=== PATIENT | male | born 1960 | race Caucasian/White ===

== ENCOUNTER 2018-06-23 14:39 | Emergency (ER) | payer OTHER ==
[~2018-06-23] VITALS: Ht 180.3 cm; Wt 126.0 kg
[2018-06-23 14:43] VITALS: BP 175/93
[2018-06-23] MEDS ORDERED: CYCL-1 PO (15:39)
[2018-06-23] MEDS ORDERED: ketorolac trometh inj. 60 MG/2 ML VIAL IM ONE (15:40)
== END 2018-06-23 16:08 | disposition home or self-care (01) ==
LOC: ER 14:39
DX: G89.29 Other chronic pain (principal); M54.2 Cervicalgia
CPT/HCPCS: 96372; 99283; J1885

== ENCOUNTER 2019-05-03 10:12 | Emergency (ER) | payer MEDICARE ==
[~2019-05-03] VITALS: Ht 180.3 cm; Wt 135.0 kg
[~2019-05-03 10:12] MED LIST: CYCL-1 PO
[2019-05-03 10:17] VITALS: BP 170/97
[2019-05-03] MEDS ORDERED: LIDOcaine 5% patch TP STA (11:41)
[2019-05-03] MEDS ORDERED: ketorolac tromethamine 15mg/ml inj. IM ONE (11:45)
[2019-05-03] MEDS ORDERED: cyclobenzaprine 10mg tablet PO ONE (11:45)
[2019-05-03] MEDS ORDERED: CYCL-1 PO (12:24)
== END 2019-05-03 12:31 | disposition home or self-care (01) ==
LOC: ER 10:13
DX: M54.5 Low back pain (principal); G89.29 Other chronic pain; Z79.899 Other long term (current) drug therapy
CPT/HCPCS: 72100; 96372; 99283; J1885

== ENCOUNTER 2019-09-22 19:39 | Emergency (ER) | payer MEDICARE ==
[~2019-09-22] VITALS: Ht 180.3 cm; Wt 127.7 kg
[2019-09-22 19:59] VITALS: BP 152/97
[2019-09-22] MEDS ORDERED: ipratropium/albuterol 3ml nebule NEB ONE (20:30)
[2019-09-22] MEDS ORDERED: ALBU8.5H8 INH (21:15)
[2019-09-23] MEDS ORDERED: PENI500T2 PO (18:58)
== END 2019-09-22 21:31 | disposition home or self-care (01) ==
LOC: ER 19:41
DX: J40 Bronchitis, not specified as acute or chronic (principal); I10 Essential (primary) hypertension; G89.29 Other chronic pain; Z79.899 Other long term (current) drug therapy
CPT/HCPCS: 94640; 94760; 99283

== ENCOUNTER 2019-09-23 17:45 | Emergency (ER) | payer MEDICARE ==
[~2019-09-23] VITALS: Ht 180.3 cm; Wt 82.3 kg
[~2019-09-23 17:45] MED LIST changes: +ALBU8.5H8 INH
[2019-09-23] MEDS ORDERED: PENI500T2 PO (18:58)
[2019-09-23 19:07] VITALS: BP 196/100
== END 2019-09-23 19:14 | disposition home or self-care (01) ==
LOC: ER 17:46
DX: J40 Bronchitis, not specified as acute or chronic (principal); I10 Essential (primary) hypertension; E11.9 Type 2 diabetes mellitus without complications; G89.29 Other chronic pain; Z79.899 Other long term (current) drug therapy
CPT/HCPCS: 99283

== ENCOUNTER 2019-10-03 19:10 | Emergency (ER) | payer MEDICARE ==
[~2019-10-03] VITALS: Ht 180.3 cm; Wt 126.1 kg
[2019-10-03 19:22] VITALS: BP 166/85
== END 2019-10-03 21:25 | disposition home or self-care (01) ==
LOC: ER 19:13
DX: R09.82 Postnasal drip (principal); R07.89 Other chest pain; I10 Essential (primary) hypertension; E11.9 Type 2 diabetes mellitus without complications; G89.29 Other chronic pain
CPT/HCPCS: 99282

== ENCOUNTER 2019-10-16 15:46 | Outpatient (CLI) | payer MEDICARE | END 2019-10-16 23:59 | disposition home or self-care (01) | LOC: RAD 15:46 | PROVIDERS: ATTEND Family Medicine | DX: J40 Bronchitis, not specified as acute or chronic (principal) | CPT/HCPCS: 71046 ==